=== PATIENT | female | born 1980 | race Caucasian/White ===

== ENCOUNTER 2018-09-10 09:40 | Day surgery (SDC) | payer OTHER ==
[~2018-09-10] VITALS: Ht 165.1 cm; Wt 66.2 kg
[~2018-09-10 09:40] MED LIST: ALBU2.5V5 INH; ALBU90OI INH; BUDE10.22 INH; BUSP15 PO; Bactrim Ds Tab1 EACH PO; Buspirone HCl7.5 MG PO; ESOM20 PO; FLONASE ALLERG9.9 ML; MONT10T PO; MULTI VITAMIN1 EACH PO; MULVITMINE; QVAR REDIHALE10.6 G1 INH; Robaxin-750750 MG PO; Singulair5 MG PO; TRAM50 PO; Zofran4 MG PO
[2018-09-10] MEDS ORDERED: CLARITIN10 MG PO (10:59)
--- NOTE | 2018-09-10 13:15 | NUR ---
09/10/18 1315 Vilma Miller V PT RESTING IN RECLINER, CALL LIGHT WITHIN REACH, VSS. PT'S , LESLIE, AT CHAIR-SIDE.
== END 2018-09-10 13:53 | disposition home or self-care (01) ==
LOC: ORSCSDS 09:40
PROVIDERS: Obstetrics & Gynecology
PROC: 0UPD7HZ Removal of Contraceptive Device from Uterus and Cervix, Via Natural or Artificial Opening (ICD-10-PCS; principal; 2018-09-10 11:00)
PROC: 0UDB7ZX Extraction of Endometrium, Via Natural or Artificial Opening, Diagnostic (ICD-10-PCS; principal; 2018-09-10 11:00)
PROC: 0UT74ZZ Resection of Bilateral Fallopian Tubes, Percutaneous Endoscopic Approach (ICD-10-PCS; principal; 2018-09-10 11:00)
DX: N92.1 Excessive and frequent menstruation with irregular cycle (principal); N94.6 Dysmenorrhea, unspecified; N80.3 Endometriosis of pelvic peritoneum; N94.0 Mittelschmerz; Z30.2 Encounter for sterilization; K66.0 Peritoneal adhesions (postprocedural) (postinfection); J45.909 Unspecified asthma, uncomplicated; F17.210 Nicotine dependence, cigarettes, uncomplicated; K21.9 Gastro-esophageal reflux disease without esophagitis; Z79.899 Other long term (current) drug therapy
CPT/HCPCS: 88300; 88305; J0690; J1100; J1885; J2250; J2405; J2710; J3010; J7120